=== PATIENT | female | born 2000 | race Caucasian/White ===

== ENCOUNTER 2021-04-30 15:10 | Emergency (ER) | payer OTHER, SELFPAY ==
[2021-04-30 15:56] VITALS: BP 139/75; PULSE 66; RESP 16; TEMP 37.2; O2SAT 100
--- NOTE | 2021-04-30 18:22 | ED.URI ---
HPI - URI/Sore Throat General Chief Complaint: Upper Respiratory Infection Stated Complaint: headache,diarrhea,cough Time Seen by Provider: 04/30/21 18:16 Source: patient and RN notes reviewed Mode of arrival: ambulatory Limitations: no limitations History of Present Illness HPI Narrative: Patient presents today with a 3-day history of headache, diarrhea, cough, left ear pain. Denies shortness of breath or fever. Reports diarrhea 1-2 times per day. Denies any blood or mucus in the stool. She has had 3 - COVID-19 rapid test at home and work. She has tried no medication [id number] prior to arrival. She has been vaccinated against COVID-19. MD elicited complaint: cough Related Data Home Medications Medication Instructions Recorded Confirmed fluoxetine 10 mg PO DAILY 04/30/21 04/30/21 Allergies Allergy/AdvReac Type Severity Reaction Status Date / Time adhesive Allergy Unknown Verified 04/30/21 18:17 Review of Systems Review of Systems: CONSTITUTIONAL: Denies body aches, fever, chills, or sweats. EYES: Denies visual changes, redness, or discharge. ENT: Denies rhinorrhea, congestion, sore throat,. + Left ear pain CARDIOVASCULAR: Denies chest pain, palpitations, or edema. RESPIRATORY: Denies dyspnea.+ Cough GASTROINTESTINAL: Denies abdominal pain, nausea, vomiting. + Diarrhea GENITOURINARY: Denies dysuria or hematuria. SKIN: Denies rash, itching, or wounds. MUSCULOSKELETAL: Denies back pain, joint pain, or myalgia. NEUROLOGIC: Denies numbness, tingling, or weakness.+ Headache PSYCH: Denies depression or anxiety. PMFSH Comments At time of signature, I have reviewed and agree with nursing past medical, surgical, social and family history unless otherwise noted. Please see nursing chart for further information. There is no relevant family history pertinent to the presenting complaint Exam Narrative: GENERAL: Well-appearing, well-nourished, and in no acute distress. HEAD: Normocephalic, atraumatic. EYES: EOMI. No redness or drainage. Conjunctivae normal. ENT: Mucous membranes pink and moist. Nares clear. No rhinorrhea. TMs normal bilaterally. Throat normal. Uvula midline. NECK: Normal AROM. Supple. No lymphadenopathy. CHEST: No respiratory distress. Clear to auscultation. HEART: Regular rate and rhythm. No murmur appreciated. Normal peripheral pulses. EXTREMITIES: Normal range of motion. No edema. SKIN: Warm, dry, no rash. Capillary refill normal. Normal skin turgor. NEURO: No focal deficits. Alert and oriented x3. Gait steady. PSYCH: Normal affect. No signs of depression or anxiety. Course Course Level of Care: Express Care Visit Vital Signs Vital signs: Vital Signs Temperature 99 F 04/30/21 15:56 Pulse Rate 66 04/30/21 15:56 Respiratory Rate 16 04/30/21 15:56 Blood Pressure 139/75 04/30/21 15:56 Pulse Oximetry 100 04/30/21 15:56 Temperature 99 F 04/30/21 15:56 Pulse Rate 66 04/30/21 15:56 Respiratory Rate 16 04/30/21 15:56 Blood Pressure 139/75 04/30/21 15:56 Pulse Oximetry 100 04/30/21 15:56 Reviewed. Pt has been instructed to follow up with her PCP regarding her elevated blood pressure today. MDM - URI/Sore Throat Differential Diagnosis Differential diagnosis: Likely upper respiratory infection, otitis media, bronchitis and other (COVID-19) Lab Data Labs: Influenza A Screen Negative Reference Range: Negative Influenza B Screen Negative Reference Range: Negative Critical Care Time Critical Care Time Critical Care Time: No Discharge Plan Discharge Clinical Impression: Viral syndrome Patient Disposition: Home, Self-Care Condition: Stable Instructions: Viral Syndrome (ED) Additional Instructions: Your influenza swab is negative today. You have a PCR COVID-19 test pending and should quarantine until the
[2021-05-02 21:02] LABS: SARS-CoV-2 RNA PCR Negative
== END 2021-04-30 18:30 | disposition home or self-care (01) ==
PROVIDERS: Emergency Provider Nurse Practitioner; PCP Nurse Practitioner Family
DX: B34.9 Viral infection, unspecified (principal); Z20.822 Contact with and (suspected) exposure to COVID-19; F41.9 Anxiety disorder, unspecified; F32.9 Major depressive disorder, single episode, unspecified
CPT/HCPCS: 87804; 99213; C9803; G0463; U0003; U0005

== ENCOUNTER 2021-08-20 11:45 | Emergency (ER) | payer OTHER, SELFPAY ==
[2021-08-20 11:50] VITALS: BP 140/86; PULSE 75; RESP 16; TEMP 36.8; O2SAT 99
--- NOTE | 2021-08-20 11:52 | ED.URI ---
HPI - URI/Sore Throat General Chief Complaint: Upper Respiratory Infection Stated Complaint: tonsils and tongue spots and swelling Time Seen by Provider: 08/20/21 11:53 Source: patient, family and RN notes reviewed History of Present Illness HPI Narrative: Patient is a 20-year-old female who presents to the urgent care with her mother with complaints of swollen tonsils, blisters on her tongue and sore throat. Patient has been taking an old prescription of penicillin that was leftover from her sister who was diagnosed with tonsillitis sometime ago. Patient is taken for tablets over the last couple days. Symptoms started 3 days ago. Denies of any recent closures. No other acute complaints. No acute distress noted. Patient aware of the plan of care. Some parts of this dictation were generated by voice recognition software and may contain typographical and/or grammatical inaccuracies. Related Data Home Medications Medication Instructions Recorded Confirmed levonorgestrel [Mirena] 1 device INTRAUTERINE ONCE 08/20/21 08/20/21 Allergies Allergy/AdvReac Type Severity Reaction Status Date / Time adhesive Allergy Unknown Verified 08/20/21 11:51 Review of Systems Review of Systems: CONSTITUTIONAL: Denies fever, chills, or sweats. EYES: Denies visual changes, redness, or discharge. ENT: Reports of sore throat, swollen tonsils and blisters to the tongue CARDIOVASCULAR: Denies chest pain, palpitations, or edema. RESPIRATORY: Denies cough or dyspnea. GENITOURINARY: Denies dysuria or hematuria. SKIN: Denies rash or itching. MUSCULOSKELETAL: Denies back pain, joint pain, or myalgia. NEUROLOGIC: Denies headache, numbness, or weakness. All other systems reviewed are negative, except as documented in HPI. PMFSH Comments At the time of my signature, I reviewed and agree with the nursing past medical, surgical, social, and family history. There is no relevant family history pertinent to the patient complaint. Exam Narrative: GENERAL: This is a well-nourished, well-developed patient, in no apparent distress. HEAD: normocephalic, atraumatic. EYES: PERRL. Sclera clear/white. Vision is grossly intact. EARS: External ears normal, auditory canals clear and without drainage, TMs normal without perforation. Hearing grossly intact. NOSE: External nose normal with no obvious nasal discharge, nares without redness, no rhinorrhea. THROAT: Mucous membranes moist. Moderate bilateral tonsillar edema with bilateral exudate and moderate postnasal drainage NECK: Neck supple CARDIOVASCULAR: Regular rate and rhythm without murmurs, gallops, or rubs. RESPIRATORY: Clear to auscultation. Breath sounds equal bilaterally. No wheezes, rales, or rhonchi. SKIN: warm, intact with no suspicious lesions or rash, good texture and turgor. NEURO: awake, alert, and oriented to person, place and time. There were no obvious focal neurologic abnormalities. EXTREMITIES: No clubbing, cyanosis, or edema. Course Course Level of Care: Express Care Visit Vital Signs Vital signs: Vital Signs Temperature 98.2 F 08/20/21 11:50 Pulse Rate 75 08/20/21 11:50 Respiratory Rate 16 08/20/21 11:50 Blood Pressure 140/86 08/20/21 11:50 Pulse Oximetry 99 08/20/21 11:50 Temperature 98.2 F 08/20/21 12:00 Pulse Rate 75 08/20/21 12:00 Respiratory Rate 16 08/20/21 12:00 Blood Pressure 140/86 08/20/21 12:00 Pulse Oximetry 99 08/20/21 12:00 Reviewed MDM - URI/Sore Throat MDM Narrative Medical decision making narrative: Reviewed result with patient. She is aware that strep swab was negative. However considering you have been taking antibiotics for the last couple days, the test would not be accurate. Considering that the rapid test was negative, policy it does require extending the swab for culture. The antibiotics will cover both strep and tonsillitis. Make sure you complete your own prescription of antibiotics as well as the steroid. Use a daily a
[2021-08-20 12:00] VITALS: BP 140/86; PULSE 75; RESP 16; TEMP 36.8; O2SAT 99
== END 2021-08-20 12:20 | disposition home or self-care (01) ==
PROVIDERS: Emergency Provider Nurse Practitioner Family; PCP Nurse Practitioner Family
DX: J03.90 Acute tonsillitis, unspecified (principal)
CPT/HCPCS: 87081; 87880; 99213; G0463

== ENCOUNTER 2021-12-19 19:13 | Emergency (ER) | payer OTHER, SELFPAY ==
[2021-12-19 19:19] VITALS: BP 137/84; PULSE 87; RESP 16; TEMP 36.6; O2SAT 100
--- NOTE | 2021-12-19 19:32 | ED.FEMALEGU ---
HPI - Female Genitourinary General Chief complaint: Urogenital-Female Stated complaint: STD Exposure Time Seen by Provider: 12/19/21 19:33 Source: patient and RN notes reviewed Mode of arrival: ambulatory Limitations: no limitations History of Present Illness HPI Narrative: 21 y/o female presented for c/o concern for STD, endorsing thick green vaginal discharge with foul odor and itching for 4 days. Pt endorses removing tampon with large amount of green discharge. Reports dysuria. Denies hematuria, frequency or urgency. Endorses unprotected sexual activity, denies partners with known std. Also reports left lower abdominal pain and a 'lump on ovary' increasing in size since April. States she is unable to lay on her stomach due to the left ovary pain, scheduled with obgyn in Dec. LMP 2 months ago, on oral BCP stating cycles are irregular. Related Data Home Medications Medication Instructions Recorded Confirmed levonorgestrel 20 mcg/24 hours (7 1 device intrauterine ONCE 08/20/21 08/20/21 yrs) 52 mg intrauterine device (Mirena) Allergies Allergy/AdvReac Type Severity Reaction Status Date / Time adhesive Allergy Unknown Verified 12/19/21 19:36 Review of Systems Review of Systems: CONSTITUTIONAL: Denies body aches, fever, chills, or sweats. CARDIOVASCULAR: Denies chest pain, palpitations, or edema. RESPIRATORY: Denies cough or dyspnea. GASTROINTESTINAL: Denies abdominal pain, nausea, vomiting, or diarrhea. GENITOURINARY: Reports vaginal discharge, dysuria, denies frequency, urgency, hematuria, flank pain SKIN: Denies rash, itching, or wounds. MUSCULOSKELETAL: Denies back pain or myalgia. PMFSH Comments At time of signature, I have reviewed and agree with nursing past medical, surgical, social and family history unless otherwise noted. Please see nursing chart for further information. There is no relevant family history pertinent to the presenting complaint Exam Narrative: GENERAL: Well-appearing ENT: Mucous membranes pink and moist. CHEST: Clear to auscultation. HEART: Regular rate and rhythm. ABDOMEN: Soft, flat, normal active bowel sounds. Left lower abdomen with a discolored subcutaneous nodule approx 4cm above pubic line approx 2cm diameter, tender with palpation; No CVA tenderness SKIN: Warm, dry, no rash. NEURO: Alert and oriented x3. Gait steady. PSYCH: Normal affect. Course Course Emergency Course: Patient is aware of diagnosis, understands and agrees to treatment plan. Anticipatory guidance given. Patient agrees to follow-up as directed and is aware of reasons to seek care at the emergency department. Portions of this record may have been created with voice recognition software Level of Care: Express Care Visit Vital Signs Vital signs: Vital Signs Temperature 97.8 F 12/19/21 19:19 Pulse Rate 87 12/19/21 19:19 Respiratory Rate 16 12/19/21 19:19 Blood Pressure 137/84 12/19/21 19:19 Pulse Oximetry 100 12/19/21 19:19 Oxygen Delivery Room Air 12/19/21 19:19 Temperature 97.8 F 12/19/21 19:19 Pulse Rate 87 12/19/21 19:19 Respiratory Rate 16 12/19/21 19:19 Blood Pressure 137/84 12/19/21 19:19 Pulse Oximetry 100 12/19/21 19:19 Oxygen Delivery Room Air 12/19/21 19:19 Reviewed MDM - Female Genitourinary MDM Narrative Medical decision making narrative: Patient presenting with concern for STD. Urine preg negative. Urine culture sent. Urine specimen collected for GC, chlamydia, trich. Informed Pt will be contacted w/ results when they become available if they are positive. Discussed with patient that it takes up to 7 days for results of cultures to be released and explained that we may treat empirically at this time. Agreeable to treatment at this time. I have instructed the patient to go immediately to the ER at any time if there are any new or worsening symptoms related to the left lower abdominal pain and/or vaginal discharge. The patient expr
[2021-12-19] MEDS: cefTRIAXone 500 MG, LIDOCAINE HCL 1% LOCAL INJ 1 ML IM (19:54)
== END 2021-12-19 20:10 | disposition home or self-care (01) ==
PROVIDERS: Emergency Provider Nurse Practitioner Family; PCP Nurse Practitioner Family
DX: Z20.2 Contact with and (suspected) exposure to infections with a predominantly sexual mode of transmission (principal); N94.89 Other specified conditions associated with female genital organs and menstrual cycle
CPT/HCPCS: 81003; 81025; 87086; 87491; 87591; 87661; 96372; 99214; G0463; J0696

== ENCOUNTER 2023-08-28 08:28 | Emergency (ER) | payer OTHER, SELFPAY ==
[2023-08-28 08:35] VITALS: BP 141/70; PULSE 107; RESP 16; TEMP 37.4; O2SAT 100
--- NOTE | 2023-08-28 09:09 | ED.URI ---
HPI - URI/Sore Throat General Chief Complaint: Upper Respiratory Infection Stated Complaint: Poss sinus infection Time Seen by Provider: 08/28/23 09:02 Source: patient and RN notes reviewed Mode of arrival: ambulatory Limitations: no limitations History of Present Illness HPI Narrative: 22-year-old female presents with concern for one-week history of sinus congestion, pain, pressure, discharge. She reports she is trying to get so she did not take anything [id number]. She is currently not . She took a negative COVID test at home. She reports ear pain and jaw pain MD elicited complaint: nasal congestion and sinus pain Related Data Allergies Allergy/AdvReac Type Severity Reaction Status Date / Time adhesive Allergy Unknown Verified 12/19/21 19:36 Review of Systems Review of Systems: CONSTITUTIONAL: Reports malaise. Denies chills, sweats, or fever. EYES: Denies visual changes, redness, or discharge. ENT: Reports rhinorrhea, congestion, sinus pain, otalgia CARDIOVASCULAR: Denies chest pain, palpitations, or edema. RESPIRATORY: Denies cough. Denies dyspnea. GASTROINTESTINAL: Denies abdominal pain, nausea, vomiting, diarrhea SKIN: Denies rash or itching. MUSCULOSKELETAL: Denies myalgia. NEUROLOGIC: Reports headache. All systems reviewed & are unremarkable except as noted in HPI and below PMFSH Comments At time of signature, agree with nursing past medical, surgical, social and family history. There is no relevant family history pertinent to the presenting complaint Exam Narrative: GENERAL: Nontoxic-appearing, well-nourished, and in no acute distress. HEAD: Normocephalic EYES: PERRLA, conjunctivae clear ENT: Nares clear, turbinates edematous and erythematous. Mucous membranes moist. TM pearly georges with dull light reflex bilaterally; no tragal tenderness. Oropharynx not erythematous without lesions. Tonsils not enlarged and without exudate, no drooling, no hoarseness, no trismus, uvula midline. NECK: Supple. No lymphadenopathy CHEST: Clear to auscultation, breath sounds equal. No wheezing, rhonchi, rales, or stridor. No respiratory distress, speaks in full sentences. HEART: Regular rate and rhythm. No murmur heard. SKIN: Warm, dry, no rash. NEURO: Alert and oriented x3. PSYCH: Normal mood and affect Course Course Emergency Course: Patient is aware of diagnosis, understands and agrees to treatment plan. Anticipatory guidance given. Patient agrees to follow-up as directed and is aware of reasons to seek care at the emergency department. Portions of this record may have been created with voice recognition software Level of Care: Express Care Visit Vital Signs Vital signs: Vital Signs Temperature 99.3 F 08/28/23 08:35 Pulse Rate 107 H 08/28/23 08:35 Respiratory Rate 16 08/28/23 08:35 Blood Pressure 141/70 H 08/28/23 08:35 Pulse Oximetry 100 08/28/23 08:35 Oxygen Delivery Room Air 08/28/23 08:35 Temperature 99.3 F 08/28/23 08:35 Pulse Rate 107 H 08/28/23 08:35 Respiratory Rate 16 08/28/23 08:35 Blood Pressure 141/70 H 08/28/23 08:35 Pulse Oximetry 100 08/28/23 08:35 Oxygen Delivery Room Air 08/28/23 08:35 Reviewed. MDM - URI/Sore Throat MDM Narrative Medical decision making narrative: Differential diagnosis considered: Ortega virus, strep pharyngitis, allergic rhinitis, upper respiratory tract infection, sinusitis, rhinosinusitis, nasopharyngitis. viral pharyngitis, otitis media, otitis externa, pneumonia, bronchitis, viral cough syndrome, viral syndrome, and influenza. Exam findings show no acute concerns or changes; patient is non-toxic appearing and is in no distress. Patient is appropriate for outpatient treatment and follow-up. Lab Data Attestation: I reviewed the patient's lab results. Critical Care Time Critical Care Time Critical Care Time: No Discharge Plan Discharge Clinical Impression: Sinusitis Patient Disposition:
== END 2023-08-28 09:21 | disposition home or self-care (01) ==
PROVIDERS: Emergency Provider Nurse Practitioner
DX: J32.9 Chronic sinusitis, unspecified (principal)
CPT/HCPCS: 99213; G0463